=== PATIENT | female | born 1985 | race Caucasian/White ===

== ENCOUNTER → 2019-03-21 | Outpatient (CLI) | payer OTHER | LOC: DIA.ED 15:02 | DX: O24.419 Gestational diabetes mellitus in pregnancy, unspecified control (principal); Z71.3 Dietary counseling and surveillance | CPT/HCPCS: G0108 ==

== ENCOUNTER 2019-05-05 15:00 | Outpatient (RCR) | payer OTHER ==
[2019-04-29 16:00] VITALS: BP 100/70; BP 112/76; PULSE 103; PULSE 113; TEMP 98.6
[2019-05-01 12:00] VITALS: BP 100/68; PULSE 110; TEMP 97.7
--- NOTE | 2019-05-01 14:30 | NUR ---
Pt scott IV iron well. Pt discharged per ambulation.
[~2019-05-05] VITALS: Ht 154.9 cm; Wt 58.1 kg
[~2019-05-05 15:00] MED LIST: PRENATAL FORMU1 EAC3 PO; PROFE180 MG PO; ZOFRAN ODT4 MG PO
[2019-05-05 15:15] VITALS: BP 101/66; PULSE 101; TEMP 98.3
--- NOTE | 2019-05-05 16:13 | NUR ---
Report to Mary Nowak RN who assumed care at this time.
== END 2019-05-05 18:23 | disposition home or self-care (01) ==
LOC: EUO 15:00
DX: D50.9 Iron deficiency anemia, unspecified (principal)
CPT/HCPCS: J2916; J7050

== ENCOUNTER 2019-06-04 05:41 | Inpatient (IN) | payer OTHER ==
[2019-06-04] VITALS (42 sets, daily range): BP systolic 79–145; BP diastolic 45–82; PULSE 55–112; TEMP 97.7–99.7
[~2019-06-04] VITALS: Ht 157.5 cm; Wt 61.4 kg
[2019-06-04 07:50] LABS: BASO % 0.3 % (0.0-2.0); EOS # 0.1 (0.0-0.7); EOS % 1.8 % (0-4.0); GRAN % 62.6 % (42.2-75.2); HEMOGLOBIN 11.4 g/dl (12.5-16.0); LYMPH # 2.1 (1.2-3.4); LYMPH % 26.7 % (20.0-51.0); MEAN CELL VOLUME 79 fl (80.0-100.0); MEAN CORPUSCULAR HEMOGLOBIN 25 pg (27.0-31.0); MEAN CORPUSCULAR HGB CONC 32 g/dl (33.0-37.0); MEAN PLATELET VOLUME 10.8 fl (7.4-10.4); MONO # 0.6 (0.1-0.6); MONO % 7.8 % (1.7-9.3); PLATELET COUNT 236 K/mm3 (130-400); RED BLOOD COUNT 4.52 M/mm3 (4.10-5.30)
[2019-06-04 07:53] LABS: HEMATOCRIT 35.7 % (37.0-47.0)
[2019-06-05 03:45] VITALS: BP 109/67; PULSE 77; TEMP 97.7
[2019-06-05 07:40] VITALS: BP 110/69; PULSE 63; TEMP 97.4
[2019-06-05 07:40] LABS: HEMOGLOBIN 10.9 g/dl (12.5-16.0)
[2019-06-05 07:45] LABS: HEMATOCRIT 34.9 % (37.0-47.0)
[2019-06-05] MEDS ORDERED: IBU600 MG PO (08:00)
[2019-06-05 12:18] VITALS: BP 105/70; PULSE 83; TEMP 98
[2019-06-05 16:00] VITALS: BP 109/59; PULSE 81; TEMP 98
== END 2019-06-05 18:10 | disposition home or self-care (01) | DRG 807 ==
LOC: LDR 05:41 → OB 06:52
PROVIDERS: ADMIT Obstetrics & Gynecology
PROC: 10E0XZZ Delivery of Products of Conception, External Approach (ICD-10-PCS; principal; 2019-06-04)
PROC: 0KQM0ZZ Repair Perineum Muscle, Open Approach (ICD-10-PCS; 2019-06-04)
DX: O24.429 Gestational diabetes mellitus in childbirth, unspecified control (principal); Z37.0 Single live birth; O99.824 Streptococcus B carrier state complicating childbirth; O70.1 Second degree perineal laceration during delivery; D64.9 Anemia, unspecified; O99.02 Anemia complicating childbirth; O76 Abnormality in fetal heart rate and rhythm complicating labor and delivery; Z3A.39 39 weeks gestation of pregnancy
CPT/HCPCS: J2210; J2400; J2540; J2590; J7120